=== PATIENT | female | born 1980 | race Caucasian/White ===

== ENCOUNTER 2022-07-27 22:16 | Emergency (ER) | payer BC ==
[2022-07-27 22:22] VITALS: BP 119/78; PULSE 80; RESP 17; TEMP 97.9; BMI 21.0
== END 2022-07-27 22:41 | disposition home or self-care (01) ==
LOC: FER 22:16
DX: S99.921A Unspecified injury of right foot, initial encounter (principal); Y99.9 Unspecified external cause status
CPT/HCPCS: 99282-25